=== PATIENT | male | born 1990 | race Caucasian/White ===

== ENCOUNTER 2017-01-06 19:09 | Emergency (ER) | payer MEDICAID ==
[~2017-01-06] VITALS: Ht 185.4 cm; Wt 104.4 kg
[2017-01-06] MEDS ORDERED: ONDANSETRON 2MG/ML, 2ML IVPush ONE (19:30)
[2017-01-06] MEDS ORDERED: SODIUM CHLORIDE FLUSH 10ML SYR IVF ONE (19:30)
[2017-01-06] MEDS ORDERED: SODIUM CHLORIDE 0.9% 1,000ML IVBOLUS ONE (19:30)
[2017-01-06] MEDS ORDERED: FAMOTIDINE 20 MG/2 ML IVP ONE (19:30)
[2017-01-06] MEDS ORDERED: MAALOX/HYOSCYAMINE/LIDOCAINE 45 ML BOTTLE PO ONE (19:30)
[2017-01-06] MEDS ORDERED: FAMOTIDINE 20 MG/2 ML ONE (19:45)
[2017-01-06] MEDS ORDERED: MAALOX/HYOSCYAMINE/LIDOCAINE 45 ML BOTTLE ONE (19:45)
[2017-01-06] MEDS ORDERED: ONDANSETRON 2MG/ML, 2ML ONE (19:45)
[2017-01-06 19:55] LABS: BLOOD UREA NITROGEN 12 mg/dL (7-18)
[2017-01-06 19:59] LABS: ASPARTATE AMINO TRANSFERASE 23 U/L (15-37)
[2017-01-06] MEDS ORDERED: ONDA-40 PO (20:07)
[2017-01-06] MEDS ORDERED: OMEP-110 PO (20:07)
[2017-01-06] MEDS ORDERED: AMOX-291 PO (20:07)
[2017-01-06] MEDS ORDERED: ATOR40TA78 PO (20:07)
[2017-01-06] MEDS ORDERED: CLAR500T3 PO (20:07)
[2017-01-06] MEDS ORDERED: METOCLOPRAMIDE 5 MG/ML, 2ML IVPush ONE (20:30)
[2017-01-06] MEDS ORDERED: METOCLOPRAMIDE 5 MG/ML, 2ML ONE (20:44)
[2017-01-06 20:52] VITALS: BP 105/59
== END 2017-01-06 21:25 | disposition home or self-care (01) ==
LOC: ED 21:00
DX: K29.00 Acute gastritis without bleeding (principal); E78.5 Hyperlipidemia, unspecified; F12.10 Cannabis abuse, uncomplicated
CPT/HCPCS: 36415; 80053; 83690; 85025; 96361; 96374; 96375; 99284; J2405; J2765; J7030; S0028

== ENCOUNTER 2017-01-22 06:41 | Emergency (ER) | payer MEDICAID ==
[~2017-01-22] VITALS: Ht 185.4 cm; Wt 104.2 kg
[~2017-01-22 06:41] MED LIST: AMOX-291 PO; ATOR40TA78 PO; CLAR500T3 PO; OMEP-110 PO; ONDA-40 PO
[2017-01-22 06:43] VITALS: BP 106/59
[2017-01-22] MEDS ORDERED: MAALOX/HYOSCYAMINE/LIDOCAINE 45 ML BOTTLE ONE (07:28)
[2017-01-22] MEDS ORDERED: MAALOX/HYOSCYAMINE/LIDOCAINE 45 ML BOTTLE PO ONE (07:30)
[2017-01-22 07:58] LABS: ASPARTATE AMINO TRANSFERASE 18 U/L (15-37); BLOOD UREA NITROGEN 15 mg/dL (7-18)
== END 2017-01-22 09:03 | disposition home or self-care (01) ==
LOC: ED 07:58
DX: K29.00 Acute gastritis without bleeding (principal); E78.5 Hyperlipidemia, unspecified; B96.81 Helicobacter pylori [H. pylori] as the cause of diseases classified elsewhere; G50.0 Trigeminal neuralgia
CPT/HCPCS: 36415; 76700; 80053; 81001; 83690; 85025

== ENCOUNTER 2017-09-30 20:18 | Emergency (ER) | payer MEDICAID ==
[~2017-09-30] VITALS: Ht 185.4 cm; Wt 104.3 kg
[~2017-09-30 20:18] MED LIST changes: -ONDA-40 PO; +ONDA8TAB15 PO
[2017-09-30 20:28] VITALS: BP 114/75
[2017-09-30] MEDS ORDERED: SODIUM CHLORIDE FLUSH 10ML SYR IVF ONE (21:00)
[2017-09-30] MEDS ORDERED: SODIUM CHLORIDE 0.9% 1,000ML IVBOLUS ONE (21:00)
[2017-09-30] MEDS ORDERED: MAALOX/HYOSCYAMINE/LIDOCAINE 45 ML BTL PO ONE (21:00)
[2017-09-30] MEDS ORDERED: ONDANSETRON 2MG/ML, 2ML IVPush ONE (21:00)
[2017-09-30] MEDS ORDERED: FAMOTIDINE 20 MG/2 ML IVPush ONE (21:00)
[2017-09-30 21:01] LABS: BASOPHILS # (AUTO) 0.03 x10^3/uL (0-0.1); BASOPHILS % (AUTO) 0 % (0-1); EOSINOPHILS # (AUTO) 0.26 x10^3/uL (0-0.4); EOSINOPHILS % (AUTO) 3 % (1-7); LYMPHOCYTES # (AUTO) 3.08 x10^3/uL (1-3.4); LYMPHOCYTES % (AUTO) 33 % (22-44); MD NO; MEAN CORPUSCULAR HEMOGLOBIN 31.7 pg (27.5-34.5); MEAN CORPUSCULAR HGB CONC 34.4 g/dL (33.2-36.2); MEAN PLATELET VOLUME 8.1 fL (7.4-10.4); MONOCYTES # (AUTO) 0.54 x10^3/uL (0.2-0.8); MONOCYTES % (AUTO) 6 % (2-9); NEUTROPHILS # (AUTO) 5.58 x10^3/uL (1.8-6.8); NEUTROPHILS % (AUTO) 59 % (42-75); PLATELET COUNT 236 x10^3/uL (130-400); RED BLOOD COUNT 5.24 x10^6/uL (4.38-5.82); RED CELL DISTRIBUTION WIDTH 13.1 % (9.4-14.8)
[2017-09-30 21:12] LABS: ALANINE AMINOTRANSFERASE 37 U/L (12-78); ALBUMIN 4.1 g/dL (3.4-5.0); ANION GAP 7 mmol/L (5-15); CALCIUM 8.8 mg/dL (8.5-10.1); CHLORIDE 107 mmol/L (98-107); CREATININE 0.99 mg/dL (0.7-1.3)
[2017-09-30] MEDS ORDERED: MAALOX/HYOSCYAMINE/LIDOCAINE 45 ML BTL ONE (21:12)
[2017-09-30] MEDS ORDERED: ONDANSETRON 2MG/ML, 2ML ONE (21:12)
[2017-09-30] MEDS ORDERED: FAMOTIDINE 20 MG/2 ML ONE (21:13)
[2017-09-30 21:15] LABS: ALKALINE PHOSPHATASE 104 U/L (45-117); BILIRUBIN,TOTAL 0.4 mg/dL (0.2-1.0); TOTAL PROTEIN 7.8 g/dL (6.4-8.2)
[2017-09-30] MEDS ORDERED: PANTOPRAZOLE 40 MG IV IVPush ONE (22:30)
== END 2017-09-30 23:02 | disposition home or self-care (01) ==
LOC: ED 22:15
DX: R10.9 Unspecified abdominal pain (principal)
CPT/HCPCS: 36415; 80053; 83690; 85025; 96361; 96374; 96375; 99284; J2405; J7030; S0028

== ENCOUNTER → 2017-12-07 | Outpatient (CLI) | payer MEDICAID ==
[~2017-12-07] MED LIST changes: +OMNIPAQUE 350 MG/ML, 100ML BOTTLE ONE
== END ==
LOC: CFH 09:22
PROVIDERS: ATTEND Internal Medicine
DX: K76.0 Fatty (change of) liver, not elsewhere classified (principal); G89.29 Other chronic pain
CPT/HCPCS: 74177; Q9967

== ENCOUNTER 2018-06-04 01:23 | Emergency (ER) | payer MEDICAID ==
[~2018-06-04] VITALS: Ht 185.4 cm; Wt 98.0 kg
[~2018-06-04 01:23] MED LIST changes: -OMNIPAQUE 350 MG/ML, 100ML BOTTLE ONE
[2018-06-04 01:25] VITALS: BP 120/75
== END 2018-06-04 02:54 | disposition home or self-care (01) ==
LOC: ED 01:56
DX: I88.9 Nonspecific lymphadenitis, unspecified (principal)
CPT/HCPCS: 99283

== ENCOUNTER 2019-01-22 20:48 | Emergency (ER) | payer MEDICAID ==
[~2019-01-22] VITALS: Ht 185.4 cm; Wt 95.2 kg
--- NOTE | 2019-01-22 21:02 | NUR ---
INITIAL CONTACT WITH PT. PT STATES WAS WALKING ACROSS HOUSE, HAD ONSET OF R BACK PAIN RADIATING DOWN R LEG, SAT DOWN, + NAUSEA AND THEN STATES DOESN'T REMEMBER. STATES FOUND PT IN CHAIR NOT ACTING RIGHT. PT STILL HAVING R BACK AND R LEG PAIN, STATES IS DIZZY AND + NAUSEA. DR TEJADA AT BEDSIDE.
[2019-01-22] MEDS ORDERED: DIAZEPAM 5 MG TABLET ONE (21:25)
[2019-01-22] MEDS ORDERED: KETOROLAC 60 MG/2 ML ONE (21:25)
[2019-01-22] MEDS ORDERED: DIAZEPAM 5 MG TABLET PO ONE (21:30)
[2019-01-22] MEDS ORDERED: KETOROLAC 30 MG/1 ML IM ONE (21:30)
--- NOTE | 2019-01-22 21:36 | NUR ---
MEDS GIVENS CHARTED, 5 RIGHTS VERIFIED.
--- NOTE | 2019-01-22 22:10 | NUR ---
PT STATES IMPROVEMENT IN S/S. WAITING FOR DC INSTRUCTIONS.
--- NOTE | 2019-01-22 22:16 | NUR ---
PT DC'D HOME WITH RX X 2 AND UNDERSTANDING OF INSTRUCTIONS. PT AND ESCORTED TO DC DESK, PT GAIT STEADY.
[2019-01-22 22:17] VITALS: BP 104/65
== END 2019-01-22 22:20 | disposition home or self-care (01) ==
LOC: ED 22:15
DX: S39.012A Strain of muscle, fascia and tendon of lower back, initial encounter (principal); M54.16 Radiculopathy, lumbar region; E78.5 Hyperlipidemia, unspecified; X58.XXXA Exposure to other specified factors, initial encounter; Y93.89 Activity, other specified; Y92.89 Other specified places as the place of occurrence of the external cause; Y99.8 Other external cause status
CPT/HCPCS: 93005; 96372; 99283; J1885